=== PATIENT | male | born 1990 | race African-American/Black ===

== ENCOUNTER 2019-02-28 10:31 | Emergency (ER) | payer BC, MEDICAID ==
[~2019-02-28] VITALS: Ht 185.4 cm; Wt 82.0 kg
[2019-02-28] MEDS ORDERED: ASPIRIN 81MG TABLET PO ONE (11:45)
[2019-02-28 12:12] LABS: HEMATOCRIT. 41.1 % (42.0-52.0); HEMOGLOBIN. 14.2 g/dL (14.0-18.0); MEAN CORPUSCULAR HEMOGLOBIN 29.9 pg (28.0-32.0); MEAN CORPUSCULAR VOLUME 86.2 fL (80.0-94.0); MEAN PLATELET VOLUME 9.9 fl (7.4-10.4); PLATELET 193 x1000/uL (130-400); RED BLOOD CELL COUNT 4.77 mill/uL (4.7-6.1); RED CELL DISTRIBUTION WIDTH 12.8 % (11.6-14.6)
[2019-02-28 12:18] LABS: CHLORIDE 107 mEq/L (98-107)
[2019-02-28 12:23] LABS: D-DIMER 0.52 mg/L FEU (<0.50); PARTIAL THROMBOPLASTIN TIME 29.4 sec (23.4-31.0); PROTHROMBIN TIME 10.6 sec (9.6-11.0)
[2019-02-28 12:57] LABS: PLATELET ESTIMATE NORMAL
[2019-02-28] MEDS ORDERED: IOHEXOL-350 100 ML BOTTLE ONE (15:14)
[2019-02-28] MEDS ORDERED: ACETAMINOPHEN 325MG TABLET PO ONE (17:00)
[2019-02-28 17:06] VITALS: BP 124/81
== END 2019-02-28 17:09 | disposition home or self-care (01) ==
LOC: ER 10:48
DX: R07.89 Other chest pain (principal); R06.02 Shortness of breath
CPT/HCPCS: 36415; 71045; 71275; 80053; 84484; 85025; 85379; 85610; 85730; 93005; 99284; Q9967; Z7610

== ENCOUNTER 2019-05-07 19:00 | Emergency (ER) | payer SELFPAY ==
[~2019-05-07] VITALS: Ht 185.4 cm; Wt 83.0 kg
[2019-05-07] MEDS ORDERED: ACETAMINOPHEN 325MG TABLET PO ONE (20:00)
[2019-05-07 21:47] VITALS: BP 120/71
== END 2019-05-07 21:49 | disposition home or self-care (01) ==
LOC: ER 19:00
DX: S63.601A Unspecified sprain of right thumb, initial encounter (principal); W20.8XXA Other cause of strike by thrown, projected or falling object, initial encounter; Y93.89 Activity, other specified; Y92.032 Bedroom in apartment as the place of occurrence of the external cause
CPT/HCPCS: 73130; 99283; Z7610